=== PATIENT | male | born 1960 | race Caucasian/White ===

== ENCOUNTER 2025-01-11 12:35 | Outpatient (CLI) | payer MEDICARE, SELFPAY ==
--- OUTSIDE RECORDS SUMMARY | 2025-01-11 12:37 | XMS_ITS | Clinical Summary ---
Author Organization [facility] Address [address] [place] [address] Care Team Providers Care Single Resource Boss Name Role Phone Geovanna Garcia MD Primary Care Provider [phone] Devante Griffin MD, Hiren Templeton Unavailable [phone] Deshawn Mendez Unavailable [phone] Allergies No known active allergies Medications atorvastatin (LIPITOR) 20 mg tablet Take 1 tablet (20 mg total) by mouth nightly Active metoprolol XL (TOPROL-XL) 25 mg extended release tablet Take 1 tablet (25 mg total) by mouth nightly Active metoprolol XL (TOPROL-XL) 50 mg extended release tablet Take 1 tablet (50 mg total) by mouth daily 09/22/2023 Active oxyCODONE-aceta minophen (PERCOCET) 5-325 mg per tabletIndicatio ns:Pain Take 1 tablet by mouth every 6 (six) hours as needed for pain 20 tablet 09/29/2024 Active Active Problems Problem Noted Date Diagnosed Date Prepatellar bursitis of left knee 09/20/2024 Encounters Date Type Department Care Team Description 10/12/2024 9:15 AM CDT Office Visit [facility] Medical Group Orthopedics and Sports Medicine [address] [facility] [address] [place] [address] Deshawn Mendez PA Encounter for removal of [place] (Primary Dx); Prepatellar bursitis of left knee from Last 3 Months Surgical History Surgery Date Site/Laterality Comments APPENDECTOMY GALLBLADDER SURGERY 06/15/2013 COLONOSCOPY 06/15/2022 - 06/14/2023 LASIK 06/15/2006 CYST REMOVAL 06/15/1984 - 06/14/1985 FROM [facility] Medical History Medical History Date Comments Gastric reflux Hypertension GERD (gastroesophageal reflux disease) Social History Tobacco Use Types Packs/Day Years Used Date Smoking Tobacco: Never Smokeless Tobacco: Never Tobacco Cessation:Counseling Given: Not Answered AUDIT-C Answer Date Recorded Q1: How often do you have a drink containing alcohol? 4 or more times a week 09/29/2024 Q2: How many drinks containi ng alcohol do you have on a typical day when you are drinking? 5 or 6 Q3: How often do you have si x or more drinks on one occasion? Monthly 09/29/2024 Personal Safety Answer Date Recorded Have you ever been in or are you currently in a harmful physical or emotional relationship or is someone making you feel afraid or unsafe? Denies 09/29/2024 Sex and Gender Information Value Date Recorded Sex Assigned at Not on file Legal Sex Male 8:21 PM SKIN PILER Gender Identity Not on file Sexual Orientation Not on file Obstetrics History Last Filed Vital Signs Vital Sign Reading Time Taken Comments Blood Pressure 125/86 09/29/2024 1:25 PM CDT Pulse 60 09/29/2024 1:25 PM CDT Temperature 36.8 C (98.3 F) 09/29/2024 12:55 PM CDT Respiratory Rate 18 09/29/2024 1:25 PM CDT Oxygen Saturation 97% 09/29/2024 1:25 PM CDT Inhaled Oxygen Concentration - - Weight 93.9 kg (207 lb) 10/12/2024 9:05 AM CDT Height 188 cm (6' 2) 10/12/2024 9:05 AM CDT Body Mass Index 26.58 10/12/2024 9:05 AM CDT Plan of Treatment Health Maintenance Due Date Last Done Comments Colon Cancer Screening-Colonoscopy 1958 Depression Screening 1958 Hepatitis C Screening 1958 Prostate Cancer Screening-PSA 1958 DTaP/Tdap/Td Vaccine (1 - Tdap) 1969 Hepatitis B Screening 1976 Pneumococcal vaccine 65+ (1 of 1 - PCV) 2008 Well Visit 65+ 2023 Covid-19 Vaccine (2023-25 season) 2024 05/24/2021, 10/02/2020, 09/10/2020 Influenza Vaccine (#1) 2025 04/10/2020 Fall Risk Assessment 09/29/2025 09/29/2024 Zoster Vaccine Completed 09/03/2022, 0212/2022, 2022 Insurance [facility] MEDICARE ADVANTAGE Care Teams Single Resource Boss Relationship Specialty Start Date End Date Geovanna Garcia MD [address] [facility] [address] [place] [address] PCP - General Family Medicine 09/14/24 Hiren Low Jr., MD 3 [facility] [address] [place] [address] Referring Physician Cardiology 09/22/24 Deshawn Mendez PA [address] [facility] [address] [address] Physician Felled Seam Operator Orthopedic Surgery 09/29/24
--- OUTSIDE RECORDS SUMMARY | 2025-01-11 12:37 | XMS_ITS | Encounter Summary ---
Author Organization [facility] Address [address] [place] [address] Care Team Providers Care Delivery Helper Name Role Phone [facility] Primary Care Provider Pranav Clemente MD Unavailable Geovanna Garcia MD Primary Care Provider [phone] Encounter Details Date Type Department Care Team (Late st Contact Info) Description 06/30/2022 Kenzei Message Enc [facility], [address] [address] [employer], [facility] Provider Stress test Social History Tobacco Use Types Packs/Day Years Used Date Smoking Tobacco: Never Smokeless Tobacco: Never Alcohol Use Standard Drinks/Week Comments Yes 20 (1 standard drink = 0.6 oz pu re alcohol) 20-30 drinks per week AUDIT-C Answer Date Recorded Frequency of Alcohol Consumption Not on file 04/21/2018 Average Number of Drinks Not on file 018 Frequency of Binge Drinking Weekly 12/2017 PHQ-2 Answer Date Recorded PHQ-2 Score - If the patient scores above 3, please move on to questions 3-9 0 06/06/2021 Sex and Gender Information Value Date Recorded Sex Assigned at Male 08/15/2024 8:21 AM BAND SALVAGER Legal Sex Male 11:48 PM CDT Gender Identity Not on file Sexual Orientation Not on file COVID-19 Exposure Response Date Recorded In the last 10 days, have yo u been in contact with someone who was confirmed or suspected to have Coronavirus/COVID-19? No / Unsure 07/01/2022 2:26 PM BAND SALVAGER documented as of this encounter Plan of Treatment Not on file documented as of this encounter Visit Diagnoses Not on filedocumented in this encounter Additional Health Concerns Assessment Noted Time PHQ-9 Depression Total Score: 0 06/06/20 21 10:51 AM BAND SALVAGER documented as of this encounter Care Teams Delivery Helper Relationship Specialty Start Date End Date [facility] PCP - General Nurse Practitioner Family 04/19/18 4 Geovanna Garcia MD [address] [place] [address] PCP - General FAMILY PRACTICE 02/14/24 [place] [address] [address] GASTROENTEROLOGY 04/10/20 documented as of this encounter
--- OUTSIDE RECORDS SUMMARY | 2025-01-11 12:37 | XMS_ITS | Encounter Summary ---
Author Organization [facility] Address [address] [place] [address] Care Team Providers Care Rim Buster Name Role Phone Latoya Lee [facility] Primary Care Provider Pranav Clemente MD Unavailable [phone] Geovanna Garcia MD Primary Care Provider [phone] Encounter Details Date Type Department Care Team (Late st Contact Info) Description 06/02/2022 BioCurityt Message Enc [facility] Medical [address] [address] Latoya Lee [facility] lab recheck Social History Tobacco Use Types Packs/Day Years [...] Sex Assigned at Male 08/15/2024 8:21 AM POLE SHAVER HELPER Legal Sex Male 11:48 PM CDT Gender Identity Not on file Sexual Orientation Not on file COVID-19 Exposure Response Date Recorded In the last 10 days, have yo u been in contact with someone who was confirmed or suspected to have Coronavirus/COVID-19? No / Unsure 05/29/2022 12:19 PM POLE SHAVER HELPER documented as of this encounter Plan of Treatment Not on file documented as of this encounter Visit Diagnoses Not on filedocumented in this encounter Additional Health Concerns Assessment Noted Time PHQ-9 Depression Total Score: 0 06/06/20 21 10:51 AM POLE SHAVER HELPER documented as of this encounter Care Teams Rim Buster Relationship Specialty Start Date End Date Latoya LeeMILP- PCP - General Nurse Practitioner Family 04/19/18 4 Geovanna Garcia MD [address] [place] [address] PCP - General FAMILY PRACTICE 02/14/24 [place] [address] [address] GASTROENTEROLOGY 04/10/20 documented as of this encounter
--- OUTSIDE RECORDS SUMMARY | 2025-01-11 12:37 | XMS_ITS | Clinical Summary ---
Author Organization [facility] Address [facility] [place] [address] Care Team Providers Care Hot Press Operator Name Role Phone Pranav Sidhu MD Unavailable [phone] Geovanna Garcia MD Primary Care Provider [phone] Allergies No known active allergies Medications sildenafil (VIAGRA) 100 MG tabletIndications:E rectile dysfunction, unspecified erectile dysfunction type Take 1/2 to 1 tablet 1 hour prior to sexual activity. Max dose 100mg/24 hours 10 tablet 3 2 Active atorvastatin (LIPITOR) 20 MG tabletIndications:M ixed hyperlipidemia Take 1 tablet (20 mg total) by mouth nightly at bedtime. 90 tablet 3 5 Active metoprolol succinate ER (TOPROL-XL) 50 MG 24 hr tabletIndications:H eart palpitations Take 1 tablet (50 mg total) by mouth daily. 90 tablet 3 5 Active Active Problems Problem Noted Date Diagnosed Date Alcohol use disorder 06/05/2024 Overview (06/05/2024): - reports drinking 20-30 beers/wk, mostly on the weekends - denies needing eye telegraph messenger, having withdrawal symptoms when not drinking - pt currently in pre-contemplation, counseled on risks of continuing to drink heavily and risks of alcohol withdrawal Hypertension 05/29/2022 Palpitations 05/29/2022 Overview (06/05/2024): - previously saw cards, last visit with Dr. Low 06/2022 - per chart review, pt to f/u with cards 6 months later, but has not had f/u visit - stable on metoprolol 50 daily - will refer back to cards if pt becomes symptomatic Abnormal EKG 05/29/2022 Asymptomatic PVCs 04/10/2020 History of pancreatitis 04/10/2020 Mixed hyperlipidemia 06/01/2018 Overview (06/05/2024): - stable on lipitor 20 History of colon polyps 06/01/2018 Resolved Problems Problem Noted Date Diagnosed Date Resolved Date Chest pain 05/29/2022 05/05/2023 Immunizations Immunization Administration Dates Next Due Fluzone 6 Months+ Quad (0.5 mL Prefilled Syringe) 04/10/2020 Shingrix 09/03/2022,07/22/2022,2022 Family History Medical History Relation Comments Heart Attack Brother Heart Disease Brother Stent Cardiac Brother neuropathy Father cant walk Heart Attack Mother Heart Disease Mother Stroke Mother No Known Problems Son Relation Status Comments Brother Alive Father (Age 91) Maternal Grandfather Maternal Grandmother Mother Alive Paternal Grandfather Paternal Grandmother Sister Alive Son Alive Social History Tobacco Use Types Packs/Day Years Used Date Smoking Tobacco: Never Smokeless Tobacco: Never Tobacco Cessation:Counseling Given: No Alcohol Use Standard Drinks/Week Comments Yes 16.7 (1 standard drink = 0.6 oz pure alcohol) 20-30 drinks per week AUDIT-C Answer Date Recorded Frequency of Alcohol Consumption Not on file 04/21/2018 Average Number of Drinks Not on file 018 Frequency of Binge Drinking Weekly 12/2017 PHQ-2 Answer Date Recorded Patient Health Questionnaire-2 Score 1 06/01/2024 Sex and Gender Information Value Date Recorded Sex Assigned at Male 08/15/2024 8:21 AM SCIENTIST ENGINEER Legal Sex Male 11:48 PM CDT Gender Identity Not on file Sexual Orientation Not on file Last Filed Vital Signs Vital Sign Reading Time Taken Comments Blood Pressure 133/80 06/01/2024 2:40 PM SCIENTIST ENGINEER Pulse 76 06/01/2024 2:40 PM SCIENTIST ENGINEER Temperature 37 C (98.6 F) 06/01/2024 2:40 PM SCIENTIST ENGINEER Respiratory Rate 18 06/01/2024 2:40 PM SCIENTIST ENGINEER Oxygen Saturation 96% 06/01/2024 2:40 PM SCIENTIST ENGINEER Inhaled Oxygen Concentration - - Weight 94.7 kg (208 lb 12.8 oz) 06/01/2024 2:40 PM SCIENTIST ENGINEER Height 185.4 cm (6' 1) 06/01/2024 2:40 PM SCIENTIST ENGINEER Body Mass Index 27.55 06/01/2024 2:40 PM SCIENTIST ENGINEER Plan of Treatment Health Maintenance Due Date Last Done Comments Colorectal Cancer Screening Colonoscopy (10 Years) 1958 Hepatitis C 1976 DTaP, Tdap and Td Vaccines ( 1 - Tdap) 1977 Pneumococcal Vaccine: 50+ Years (1 of 1 - PCV) 2008 Annual Medicare Wellness Visit 2023 PHQ-2 (Physician Ross) 06/15/2024 06/01/2024 COVID-19 Vaccine (4 - 2023-2 5 season) 2025 05/24/2021, 10/02/2020, 09/10/2020 Postponed from 02/14/2024 (Patient Refused) RSV Immunization or 60+ Years (1 - 1-dose 75+ series) 2033 Zoster Vaccines Completed 09/03/2022, 07/22/2022, 2022 Meningococcal B Vaccine Aged Out No l onger eligible based on patient's age to complete this topic Meningococcal Vaccine Aged Out No juan diego evelyn eligible based on patient's age to complete this topic RSV Immunizations Under 20 Months Aged Out No longer eligible b ased on patient's age to complete this topic Insurance [place] [address] [facility] Care Teams Hot Press Operator Relationship Specialty Start Date End Date Geovanna Garcia MD [address] [place] [address] PCP - General FAMILY PRACTICE 02/14/24 [place] [address] [phone] GASTROENTEROLOGY 04/10/20
--- OUTSIDE RECORDS SUMMARY | 2025-01-11 12:37 | XMS_ITS | Referral Summary ---
Author Organization [facility] Address [address] [place] [address] Care Team Providers Care Inseam Trimming Machine Operator Name Role Phone Geovanna Garcia MD Primary Care Provider [phone] Devante Griffin MD, Hiren Templeton Unavailable [phone] Deshawn Mendez Unavailable [phone] Encounters Date Type Department Care Team Description 10/12/2024 9:15 AM CDT Office Visit [facility] Medical Group Orthopedics and Sports Medicine [address] [place] [address] [address] [place] [address] Deshawn Mendez PA Encounter for removal of virginia (Primary Dx); Prepatellar bursitis of left knee from Last 3 Months Allergies No known active allergies Medications atorvastatin [...] Date Prepatellar bursitis of left knee 09/20/2024 Social History Tobacco Use Types Packs/Day Years [...] on file Legal Sex Male 8:21 PM MANAGER WEB Gender Identity Not on file Sexual Orientation [...] 10/12/2024 9:05 AM CDT Plan of Treatment Not on file Insurance MEDICARE ADVANTAGE Care Teams Inseam Trimming Machine Operator Relationship Specialty Start Date End Date Geovanna Garcia MD 3 [facility] [address] [place] [address] PCP - General Family Medicine 09/14/24 Hiren Low Jr., MD 3 [facility] [address] [place] [address] Referring Physician Cardiology 09/22/24 Deshawn Mendez PA [address] [facility] [address] [address] Physician Security Manager Orthopedic Surgery 09/29/24
--- OUTSIDE RECORDS SUMMARY | 2025-01-11 12:37 | XMS_ITS | Encounter Summary ---
Author Organization [facility] Address [address] [place] [address] Care Team Providers Care System Support Analyst Name Role Phone Latoya Lee [facility] Primary Care Provider Pranav Clemente MD Unavailable [phone] Geovanna Garcia MD Primary Care Provider [phone] Encounter Details Date Type Department Care Team (Late st Contact Info) Description 01/21/2023 Exosectt Message Enc [facility] Medical [facility] Family Medicine [address] [address] Latoya Lee [facility] Eaton B/P Social History Tobacco Use Types Packs/Day Years [...] Sex Assigned at Male 08/15/2024 8:21 AM LITHARGE MILL OPERATOR Legal Sex Male 11:48 PM CDT Gender Identity Not on file Sexual Orientation Not on file documented as of this encounter Plan of Treatment Not on file documented as of this encounter Visit Diagnoses Not on filedocumented in this encounter Additional Health Concerns Assessment Noted Time PHQ-9 Depression Total Score: 0 06/06/20 21 10:51 AM LITHARGE MILL OPERATOR documented as of this encounter Care Teams System Support Analyst Relationship Specialty Start Date End Date Latoya Lee, [facility] PCP - General Nurse Practitioner Family 04/19/18 4 Geovanna Garcia MD [address] [place] [address] PCP - General FAMILY PRACTICE 02/14/24 [place] [address] [phone] GASTROENTEROLOGY 04/10/20 documented as of this encounter
--- OUTSIDE RECORDS SUMMARY | 2025-01-11 12:37 | XMS_ITS | Encounter Summary ---
Author Organization [facility] Address [address] [place] [address] Care Team Providers Care Arresting Gear Operator Name Role Phone Pranav Sidhu MD Unavailable [phone] Geovanna Garcia MD Primary Care Provider Encounter Details Date Type Department Care Team (Late st Contact Info) Description 05/18/2024 Alphiont Message Enc [facility] Medical Group Family Medicine [facility] [address] [place] [address] Geovanna Garcia MD [address] [place] [address] Labs for 05/20 Social History Tobacco Use Types Packs/Day Years Used Date Smoking Tobacco: Never Smokeless Tobacco: Never Alcohol Use Standard Drinks/Week Comments Yes 16.7 (1 standard drink = 0.6 oz pure alcohol) 20-30 drinks per week AUDIT-C Answer Date Recorded Frequency of Alcohol Consumption Not on file 04/21/2018 Average Number of Drinks Not on file 018 Frequency of Binge Drinking Weekly 12/2017 PHQ-2 Answer Date Recorded Patient Health Questionnaire-2 Score 2 05/05/2023 Sex and Gender Information Value Date Recorded Sex Assigned at Male 08/15/2024 8:21 AM TERRAZZO LAYER Legal Sex Male 11:48 PM CDT Gender Identity Not on file Sexual Orientation Not on file documented as of this encounter Plan of Treatment Not on file documented as of this encounter Visit Diagnoses Not on filedocumented in this encounter Additional Health Concerns Assessment Noted Time PHQ-9 Depression Total Score: 2 05/05/20 23 2:19 PM TERRAZZO LAYER documented as of this encounter Care Teams Arresting Gear Operator Relationship Specialty Start Date End Date Geovanna Garcia MD [address] [place] [address] PCP - General FAMILY PRACTICE 02/14/24 [place] [address] [phone] GASTROENTEROLOGY 04/10/20 documented as of this encounter
--- OUTSIDE RECORDS SUMMARY | 2025-01-11 12:37 | XMS_ITS | Clinical Summary ---
Author Organization [facility] Address [address] [place] [address] Phone Care Team Providers Care E Tailer Name Role Phone Unavailable Primary Care Provider Unavailabl e Social History Tobacco Use Types Packs/Day Years Used Date Smoking Tobacco: Never Assessed Sex and Gender Information Value Date Recorded Sex Assigned at Not on file Legal Sex Male 10:19 PM CDT Gender Identity Not on file Sexual Orientation Not on file Plan of Treatment Health Maintenance Due Date Last Done Comments DTAP/TDAP/TD VACCINES (1 - Tdap) 1977 COLORECTAL SCREENING 2003 Colorectal Cancer Screening 2003 FIT-DNA Q 3 years 2003 FIT/FOBT Q 1 year 2003 Flex Sig/CT Colonography Q 5 years 2003 PNEUMOCOCCAL VACCINE 50+ YEARS (1 of 1 - PCV) 05/21/20 08 ZOSTER VACCINE (1 of 2) 2008 INFLUENZA VACCINE (#1) 2025 RSV VACCINE (60+ or ) (1 - 1-dose 75+ series) 2033
--- OUTSIDE RECORDS SUMMARY | 2025-01-11 12:38 | XMS_ITS | Encounter Summary ---
Author Organization [facility] Address [address] [place] [address] Care Team Providers Care Wood Tile Installation Helper Name Role Phone Pranav Sidhu MD Unavailable [phone] Geovanna Garcia MD Primary Care Provider [phone] Encounter Details Date Type Department Care Team (Late st Contact Info) Description 08/08/2024 DocLogixt Message Enc [facility] Medical Group Family Medicine [facility] [address] [place] [address] Geovanna Garcia MD [address] [place] [address] Charge for visit Social History Tobacco Use Types Packs/Day Years [...] Sex Assigned at Male 08/15/2024 8:21 AM MANAGED CARE MANAGER Legal Sex Male 11:48 PM CDT Gender Identity Not on file Sexual Orientation Not on file documented as of this encounter Plan of Treatment Not on file documented as of this encounter Visit Diagnoses Not on filedocumented in this encounter Additional Health Concerns Assessment Noted Time PHQ-9 Depression Total Score: 2 05/05/20 23 2:19 PM MANAGED CARE MANAGER documented as of this encounter Care Teams Wood Tile Installation Helper Relationship Specialty Start Date End Date Geovanna Garcia MD [address] [place] [address] PCP - General FAMILY PRACTICE 02/14/24 [place] [address] [phone] GASTROENTEROLOGY 04/10/20 documented as of this encounter
[2025-01-11 12:54] LABS: Hematocrit 44.8 % (42.0-52.0); Hemoglobin 15.0 g/dL (14.0-18.0); Immature Granulocyte Percent A 0.2 % (0-0.5); Lymphocytes Absolute Auto 1.35 K/mm3 (0.9-3.2); Mean Corpuscular HGB Conc 33.5 g/dl (32-36); Mean Corpuscular Hemoglobin 30.9 pg (26-34); Mean Corpuscular Volume 92.4 fl (80-100); Nucleated Red Blood Cells Absolute Auto 0.000 K/mm3 (0.0-0.012); Nucleated Red Blood Cells Perc 0.0 % (0.0-0.2); Platelet Count Result 223 k/mm3 (150-375); Red Blood Count 4.85 M/mm3 (4.6-6.20); White Blood Count 4.7 K/mm3 (4.5-10.0)
[2025-01-11 13:12] LABS: Alanine Aminotransferase 46 U/L (6-50); Albumin Level 4.4 g/dL (3.5-5.1); Alkaline Phosphatase 103 U/L (38-126); Anion Gap 5 mmol/L (4-12); Aspartate Amino Transferase 42 U/L (17-59); Bilirubin,Total 1.7 mg/dL (0.2-1.3); Blood Urea Nitrogen 11 mg/dL (9-20); Calcium 9.5 mg/dL (8.4-10.2); Carbon Dioxide 25 mmol/L (22-30); Chloride 102 mmol/L (98-107); Cholesterol 157 mg/dL (0-200); Estimated Glomerular Filt Rate > 60; Glucose 109 mg/dL (65-110); HDL Direct 74 mg/dL; Potassium 4.2 mmol/L (3.4-5.0); Sodium 132 mmol/L (137-145); Total Protein 7.2 g/dL (6.3-8.2); Triglycerides 103 mg/dL (<150)
[2025-01-11 14:05] LABS: Vitamin B12 358.0 pg/mL (239-931)
[2025-01-15 01:07] LABS: Free Testosterone (Direct) 7.1 pg/mL (6.6-18.1)
== END 2025-01-11 12:36 | disposition home or self-care (01) ==
PROVIDERS: PCP Family Medicine; Visit Provider Family Medicine
DX: E78.5 Hyperlipidemia, unspecified (principal); I10 Essential (primary) hypertension; Z79.899 Other long term (current) drug therapy
CPT/HCPCS: 36415; 80053; 80061; 82172; 82306; 82607; 84402; 84403; 85025